=== PATIENT | male | born 1960 | race Caucasian/White ===

== ENCOUNTER 2016-08-07 20:46 | Inpatient (IN) | payer OTHER ==
[~2016-08-07] VITALS: Ht 177.8 cm; Wt 120.2 kg
[~2016-08-07 20:46] MED LIST: BACTRIM,SEPT1 TABLET PO; GLIMEPIRIDE4 MG PO; LISINOPRIL20 MG PO; LOW DOSE ASPIRI81 M1 PO; NOVOLOG MI100 UNIT/M SC
[2016-08-07 21:20] LABS: CHLORIDE 107 mEq/L (99-109); POTASSIUM 3.8 mEq/L (3.7-5.4); SODIUM 140 mEq/L (136-147)
[2016-08-07 21:23] LABS: ANION GAP 13 MEQ/L (2-14)
[2016-08-07 21:26] LABS: GFR ESTIMATE (CALCULATED) > 59 mL/min/; UREA NITROGEN (BUN) 23 mg/dL (9-23)
[2016-08-07 21:27] LABS: GLUCOSE 27 mg/dL (70-99)
[2016-08-07 21:37] LABS: EOSINOPHIL (%) 0.2 % (0-5); HEMATOCRIT 43.7 % (38.0-50.0); IMMATURE GRANULOCYTE (%) 0.2 % (0.0-0.7); IMMATURE GRANULOCYTE COUNT 0.4 K/uL; LYMPHOCYTE COUNT 1.3 K/uL (1.0-2.8); MCHC 33.9 G/DL (30.0-36.0); MCV 88.5 FL (86-99); MEAN PLAT.VOLUME 10.5 uM^3 (9.0-12.4); MONOCYTE (%) 5.1 % (3-12); MONOCYTE COUNT 0.9 K/uL (0-0.8); NEUTROPHIL (%) 87.2 % (45-76); NEUTROPHIL COUNT 15.7 K/uL (1.8-6.4); PLATELET COUNT 240 K/uL (156-360); RBC DIS.WIDTH-CV 14.1 % (11.8-14.6); RBC DIS.WIDTH-SD 45.1 % (39-53); RED BLOOD COUNT 4.94 M/uL (4.00-5.50)
[2016-08-07 21:58] LABS: TOTAL BILIRUBIN 0.4 mg/dL (0.0-1.0)
[2016-08-07 21:59] LABS: ALKALINE PHOSPHATASE 88 IU/L (3-129)
[2016-08-07 22:02] LABS: DIRECT BILIRUBIN 0.2 mg/dL (0.0-0.3)
[2016-08-07 22:03] LABS: LIPASE 14 U/L (1.0-51.0)
[2016-08-07 22:08] LABS: TROP-I INTERPRETATION NEGATIVE; TROPONIN-I < 0.01 ng/mL (0.0-0.30)
[2016-08-07 22:12] LABS: Estimated Average Glucose 171 mg/dL (70-123); HEMOGLOBIN A1c (GLYCOHEMOGLOB) 7.6 % HGB (Below 5.7)
[2016-08-07 22:27] LABS: POINT-OF-CARE USER ID 611181311
[2016-08-08 00:14] LABS: POINT-OF-CARE USER ID 611181311
[2016-08-08] MEDS ORDERED: NOVOLOG MI100 UNIT/4 SC (00:38)
[2016-08-08] MEDS ORDERED: ACTOS30 MG PO (00:40)
[2016-08-08 02:18] LABS: POINT-OF-CARE USER ID 611181311
[2016-08-08 02:33] VITALS: BP 143/84
[2016-08-08 02:36] VITALS: BP 143/84
[2016-08-08 03:59] LABS: POINT-OF-CARE METER ID UU13113698
[2016-08-08 05:07] LABS: TROP-I INTERPRETATION NEGATIVE; TROPONIN-I 0.11 ng/mL (0.0-0.30)
[2016-08-08 06:32] LABS: POINT-OF-CARE METER ID UU13113781
[2016-08-08 08:08] LABS: POINT-OF-CARE METER ID UU13113698
[2016-08-08 09:00] VITALS: BP 143/70
[2016-08-08 09:29] LABS: POINT-OF-CARE USER ID 611181311
[2016-08-08 11:06] LABS: POINT-OF-CARE METER ID UU13113698
[2016-08-08 11:36] LABS: HEMATOCRIT 40.6 % (38.0-50.0); MCH 29.9 PG (29.0-34.0); MCV 90.6 FL (86-99); PLATELET COUNT 184 K/uL (156-360); RBC DIS.WIDTH-CV 14.3 % (11.8-14.6); RBC DIS.WIDTH-SD 47.3 % (39-53); RED BLOOD COUNT 4.48 M/uL (4.00-5.50)
[2016-08-08 11:37] LABS: WHITE BLOOD COUNT 11.7 K/uL (4.1-10.2)
[2016-08-08 12:00] VITALS: BP 125/71
[2016-08-08 12:19] LABS: TROP-I INTERPRETATION NEGATIVE; TROPONIN-I 0.07 ng/mL (0.0-0.30)
[2016-08-08 15:54] LABS: POINT-OF-CARE METER ID UU13113698
[2016-08-08 17:02] VITALS: BP 125/69
[2016-08-08 19:22] VITALS: BP 141/74
[2016-08-09 00:25] VITALS: BP 118/57
[2016-08-09 04:18] VITALS: BP 149/78
[2016-08-09 06:34] LABS: HEMATOCRIT 41.9 % (38.0-50.0); MCH 30.2 PG (29.0-34.0); MCHC 33.2 G/DL (30.0-36.0); MCV 91.1 FL (86-99); PLATELET COUNT 164 K/uL (156-360); RBC DIS.WIDTH-CV 14.2 % (11.8-14.6); RBC DIS.WIDTH-SD 46.9 % (39-53)
[2016-08-09 06:51] LABS: ALKALINE PHOSPHATASE 84 IU/L (3-129); ANION GAP 8 MEQ/L (2-14); CHLORIDE 102 MEQ/L (99-109); GFR ESTIMATE (CALCULATED) > 59 mL/min/; SAMPLE HEMOLYSIS CHECK 0; SAMPLE ICTERIC CHECK 0; SAMPLE LIPEMIA CHECK 0; SODIUM 134 MEQ/L (136-147); TOTAL BILIRUBIN 0.6 MG/DL (0.0-1.0); UREA NITROGEN (BUN) 18 mg/dL (9-23)
[2016-08-09 07:00] LABS: GLUCOSE 223 mg/dL (70-99); POTASSIUM 4.7 MEQ/L (3.7-5.4)
[2016-08-09 08:07] LABS: POINT-OF-CARE METER ID UU14174216; POINT-OF-CARE USER ID NUTSLF44
[2016-08-09] MEDS ORDERED: NOVOLOG PE100 UNITS/ SC (09:17)
== END 2016-08-09 12:00 | disposition home or self-care (01) | DRG 637 ==
LOC: EME → EDBD 20:46 → EME 20:46 → EDOF 08-08 00:35 → 4EAST 08-08 00:35
PROVIDERS: Emergency Medicine; Internal Medicine; Physician Assistant Medical
DX: E11.649 Type 2 diabetes mellitus with hypoglycemia without coma (principal); G93.41 Metabolic encephalopathy; L03.90 Cellulitis, unspecified; R41.82 Altered mental status, unspecified; E78.00 Pure hypercholesterolemia, unspecified; E66.9 Obesity, unspecified; I10 Essential (primary) hypertension; G80.9 Cerebral palsy, unspecified; Z87.891 Personal history of nicotine dependence; Z79.4 Long term (current) use of insulin; F79 Unspecified intellectual disabilities; Z85.841 Personal history of malignant neoplasm of brain; Z91.11 Patient's noncompliance with dietary regimen; Z68.37 Body mass index [BMI] 37.0-37.9, adult
CPT/HCPCS: 71020; 80048; 80053; 80076; 81003; 82948; 83036; 83690; 84484; 84681 90; 85025; 85027; 93005; 99281; 99285; J1644; J1815

== ENCOUNTER 2017-04-30 07:57 | Day surgery (SDC) | payer OTHER ==
[~2017-04-30] VITALS: Ht 177.8 cm; Wt 77.1 kg
[~2017-04-30 07:57] MED LIST changes: +ACTOS30 MG PO; +JANUVIA100 MG PO; +NOVOLOG MI100 UNIT/3 SC; -NOVOLOG MI100 UNIT/M SC; +NOVOLOG PE100 UNITS/ SC
[2017-04-30 08:19] VITALS: BP 146/723
[2017-04-30 08:24] VITALS: BP 146/72
[2017-04-30 08:41] LABS: POINT-OF-CARE METER ID UU14174212
[2017-04-30 11:41] LABS: POINT-OF-CARE METER ID UU13113675; POINT-OF-CARE USER ID 515036437
[2017-04-30 12:04] VITALS: BP 171/83
[2017-04-30 12:51] VITALS: BP 144/69
== END 2017-04-30 13:15 | disposition home or self-care (01) ==
LOC: SDC 07:57
PROVIDERS: Internal Medicine
DX: H43.11 Vitreous hemorrhage, right eye (principal); H34.8111 Central retinal vein occlusion, right eye, with retinal neovascularization; H33.41 Traction detachment of retina, right eye; I10 Essential (primary) hypertension; G80.9 Cerebral palsy, unspecified; E11.9 Type 2 diabetes mellitus without complications; E78.5 Hyperlipidemia, unspecified; E66.9 Obesity, unspecified; E78.6 Lipoprotein deficiency; Z79.4 Long term (current) use of insulin; Z68.41 Body mass index [BMI] 40.0-44.9, adult; Z79.82 Long term (current) use of aspirin; Z87.891 Personal history of nicotine dependence
CPT/HCPCS: 82948; J0690; J2250; J3010; J3300